=== PATIENT | female | born 1970 | race Two or more races ===

== ENCOUNTER 2017-04-07 10:41 | Emergency (ER) | payer MEDICARE ==
[~2017-04-07] VITALS: Ht 157.5 cm; Wt 68.2 kg
[2017-04-07] MEDS ORDERED: DIVA500T35 PO (11:00)
[2017-04-07 12:09] LABS: BASOPHILS % (AUTO) 0.3 % (0.0-2.0); EOSINOPHILS % (AUTO) 1.5 % (1.0-6.0); HEMATOCRIT 34.5 % (36-46); HEMOGLOBIN 11.6 g/dL (12.0-16.0); LYMPHOCYTES # (AUTO) 1.2 K/uL (1.0-4.8); LYMPHOCYTES % (AUTO) 9.8 % (22.0-44.0); MEAN CORPUSCULAR HEMOGLOBIN 27.5 pg (26.0-34.0); MEAN CORPUSCULAR HGB CONC 33.6 G/dL (31.0-37.0); MEAN CORPUSCULAR VOLUME 82 fL (80-100); MONOCYTES % (AUTO) 8.4 % (2.0-9.0); NEUTROPHILS # (AUTO) 9.7 K/uL (1.8-7.7); PLATELET COUNT (AUTO) 216 K/uL (150-450); RED BLOOD CELL COUNT(AUTO) 4.22 MIL/uL (4.00-5.20); RED CELL DISTRIBUTION WIDTH 14.8 % (11.5-14.5)
[2017-04-07 12:20] LABS: ANION GAP 12 mmol/L (8-16); CALCIUM, TOTAL 9.5 mg/dL (8.8-10.5); CARBON DIOXIDE 24 mmol/L (22-29); CHLORIDE 104 mmol/L (98-107); CREATININE 0.87 mg/dL (0.60-1.30); GLOMERULAR FILTR. RATE CALC > 60 mL/min (>60); GLUCOSE,RANDOM 92 mg/dL (70-110); POTASSIUM 3.7 mmol/L (3.5-5.1); SODIUM SERUM 140 mmol/L (136-145); UREA NITROGEN, BLOOD 6 mg/dL (7-18)
[2017-04-07 12:27] LABS: ALANINE AMINOTRANSFERASE 19 U/L (12-78); ALBUMIN 2.6 g/dL (3.4-5.0); ALKALINE PHOSPHATASE 71 U/L (46-116); ASPARTATE AMINOTRANSFERASE 13 U/L (15-37); BILIRUBIN,TOTAL 0.2 mg/dL (0.1-1.0); TOTAL PROTEIN, SERUM 7.7 g/dL (6.4-8.2)
[2017-04-07 12:45] LABS: APPEARANCE,URINE CLOUDY (CLEAR); BILIRUBIN,URINE NEGATIVE (NEGATIVE); GLUCOSE, URINE (UA) NEGATIVE (NEGATIVE); KETONES,URINE NEGATIVE (NEGATIVE); LEUKOCYTE ESTERASE ,URINE LARGE (NEGATIVE); NITRATE,URINE NEGATIVE (NEGATIVE); OCCULT BLOOD,URINE TRACE (NEGATIVE); PROTEIN,URINE NEGATIVE (NEGATIVE)
[2017-04-07 12:50] LABS: HCG,QUAL RESULT NEGATIVE (NEGATIVE)
[2017-04-07 12:59] LABS: BACTERIA,URINE Moderate /HPF (None Seen); RBC,URINE 0-2 /HPF (0-2); SQUAMOUS EPITHELIAL CELL,UR Moderate /LPF (None Seen)
[2017-04-07 13:44] LABS: VALPROIC ACID 74 mcg/mL (50-100)
[2017-04-07] MEDS ORDERED: AZITHROMYCIN 250 MG TABLET PO ONE (14:15)
[2017-04-07] MEDS ORDERED: CefTRIAXone SODIUM 1 GM/VIAL IM ONE (14:15)
[2017-04-07] MEDS ORDERED: IBUPROFEN 600 MG TABLET PO ONE (15:45)
[2017-04-07 16:16] VITALS: BP 116/78
== END 2017-04-07 16:59 | disposition home or self-care (01) ==
LOC: EMS 10:42
DX: N83.201 Unspecified ovarian cyst, right side (principal); N39.0 Urinary tract infection, site not specified
CPT/HCPCS: 36415; 76856; 80053; 80164; 81001; 84703; 85025; 87086; 87491; 87591; 96372; 99285; J0696

== ENCOUNTER 2018-06-02 14:22 | Emergency (ER) | payer MEDICARE ==
[~2018-06-02] VITALS: Ht 152.4 cm; Wt 100.0 kg
[~2018-06-02 14:22] MED LIST: DIVA-78 PO
[2018-06-02 14:34] VITALS: BP 139/88
[2018-06-02] MEDS ORDERED: ACETAMINOPHEN 500 MG TABLET PO ONE (16:30)
[2018-06-02] MEDS ORDERED: GLYCERIN/WITCH HAZEL LEAF 40 PADS JAR TP ONE (16:30)
== END 2018-06-02 16:50 | disposition home or self-care (01) ==
LOC: EMS 14:23
DX: K62.89 Other specified diseases of anus and rectum (principal); F31.9 Bipolar disorder, unspecified

== ENCOUNTER 2023-11-19 03:28 | Emergency (ER) | payer MEDICARE, OTHER ==
[~2023-11-19] VITALS: Ht 167.6 cm; Wt 100.0 kg
[~2023-11-19 03:28] MED LIST changes: +DIVA-112 PO; -DIVA-78 PO
[2023-11-19 03:40] VITALS: BP 148/69; PULSE 77; RESP 14; TEMP 98.1
[2023-11-19] MEDS ORDERED: CORTSUSP AD (04:48)
[2023-11-19] MEDS ORDERED: GUAIFDM PO (04:48)
[2023-11-19] MEDS ORDERED: IBUP-1554 PO (04:48)
[2023-11-19] MEDS ORDERED: CEPH-558 PO (04:48)
[2023-11-19] MEDS: IBUPROFEN 600 MG TABLET PO ONE (05:08)
[2023-11-19] MEDS: GuaiFENesin/D-METHORPHAN [SUGAR-FREE] 200-20MG/10 ML SYRUP UDCUP PO ONE (05:08)
== END 2023-11-19 05:21 | disposition home or self-care (01) ==
LOC: EMS 03:28
DX: H66.91 Otitis media, unspecified, right ear (principal); H60.91 Unspecified otitis externa, right ear; J06.9 Acute upper respiratory infection, unspecified; F31.9 Bipolar disorder, unspecified
CPT/HCPCS: 99283